=== PATIENT | female | born 1985 | race Caucasian/White ===

== ENCOUNTER → 2017-06-14 10:22 | Outpatient (CLI) | payer MEDICAID ==
--- NOTE | ~2017-06-14 | EC ---
PATIENT:ARASH WOODSON DATE OF SERVICE: 06/14/17 SEX: F MEDICAL RECORD: [id number] DATE OF : [birth year] LOCATION:D[facility] AGE OF PATIENT: 32 ADMISSION DATE: 06/14/17 REFERRING PHYSICIAN: INTERPRETING PHYSICIAN: CHAO JAMES MD ECHOCARDIOGRAM REPORT ECHO CHARGES 4 ECHO COMPLETE CLINICAL DIAGNOSIS: BUBBLE STUDY DUE TO DYSPNEA ASSESS FOR ASD/PFO ECHOCARDIOGRAPHIC MEASUREMENTS (adult normal given) AC root (d.<3.7cm) 3.1 cm LV Septum d (<1.2 cm> 1.5 cm Valve Excursion 1.7 cm LV Septum (systole) 1.6 cm Left Atria (s.<4.0cm> 3.4 cm LVPW d(<1.2cm) 1.5 cm RV (d.<2.3cm) 3.5 cm LVPW (sytole) 1.7 cm LV diastole(<5.6CM) 4.3 cm MV E-F(>70mm/sec) cm LV systole 2.5 cm LVOT Diameter 2.0 cm MV exc.(>10mm) 1.2 cm Est.ejection fraction (50-75%) % Pericardial Effusion N DOPPLER: LVIT cm/sec A 56.0 cm/sec E 89.0 cm/sec LA cm/sec RVSP 19 mmHg LVOT 130 cm/sec AOP1/2T m/s Asc. Ao 139 cm/sec RVOT 78 cm/sec RA cm/sec PA 101 cm/sec AV Gradient Peak 7.70 mmHg AV Mean 3.65 mmHg AV Area 2.8 cm MV Gradient Peak 3.50 mmHg MV Mean 1.13 mmHg MV Area cm COMMENTS: Production Repairer: Amna LAND Inpatient Coder: 4 Dr. James TAPE# PACS DATE OF SERVICE: 06/14/2017 Complete Echocardiogram, Transthoracic and Bubble Study FINDINGS: 1. The left ventricle is not well visualized, but grossly normal with an ejection fraction of 55% to 60%. 2. The left atrium appears to be grossly normal. 3. The right atrium appears to be grossly normal. 4. The aortic valve appears to be grossly normal. ECHOCARDIOGRAM REPORT [id number] ARASH WOODSON 5. The tricuspid valve and the mitral valve are both grossly normal without any significant mitral regurgitation or stenosis. 6. There is no pericardial effusion. 7. Right ventricle: Normal size, normal function. CONCLUSION: The patient's overall study was fairly normal; however, I would say that the views were very limited even with the bubbles. There is one view, where it looked like there could be some mitral regurgitation; however, it was very difficult to say in the other views that did not capture demonstrate any significant mitral regurgitation. There was no demonstration of bubbles passing from the right-sided structure to the left side. At this point in time, it is fairly a normal study, but given the limitations, if clinically important, a transesophageal echocardiogram may be more helpful. TRANSINT:[id number] Voice Confirmation ID: [id number] DOCUMENT ID: [id number] CHAO JAMES MD CC: [id number] DICTATION DATE: 06/14/17 165 SEWER HAND: [id number] DEP CLI 06/14/17 [id number] [place] [address]
== END | disposition home or self-care (01) ==
LOC: D.ECHO 06-10 13:00
DX: R06.02 Shortness of breath (principal)